=== PATIENT | female | born 1950 | race Caucasian/White ===

== ENCOUNTER 2018-01-24 18:29 | Emergency (ER) | payer MEDICARE ==
[2018-01-24 19:14] VITALS: BP 129/50
--- NOTE | 2018-01-24 19:43 | UC ---
Hand/Wrist HPI - HPI Summary HPI Summary: Pt c/o sudden on set of tenderness, swelling, and redness left anterior lateral wrist. Denies injury or trauma. Has history of gout - History Of Current Complaint Chief Complaint: UCUpperExtremity Stated Complaint: LEFT HAND PAIN Time Seen by Provider: 01/24/18 19:31 Hx Obtained From: Patient ?: No Onset/Duration: Sudden Onset Severity Initially: Moderate Severity Currently: Moderate Pain Intensity: 7 Character Of Pain: Sharp, Dull, Aching Aggravating Factor(s): Movement Alleviating Factor(s): Rest Associated Signs And Symptoms: Positive: Swelling, Redness Related History: Dominant Hand Right - Risk Factors Compartment Syndrome Risk Factors: Pain - Allergies/Home Medications Allergies/Adverse Reactions: Allergies Allergy/AdvReac Type Severity Reaction Status Date / Time No Known Allergies Allergy Verified 01/24/18 19:14 Home Medications: Home Medications Allopurinol TAB* [Zyloprim 100 MG TAB*] 100 mg PO DAILY 01/24/18 [History Confirmed 01/24/18] PMH/Surg Hx/FS Hx/Imm Hx Previously Healthy: Yes Cardiovascular History: Hypertension - Surgical History Surgical History: Yes Surgery Procedure, Year, and Place: gallbladder 2006 [facility] - Family History Known Family History: Positive: Cardiac Disease - Social History Occupation: Retired Lives: With Family Alcohol Use: Rare Alcohol Amount: socially Substance Use Type: None Smoking Status (MU): Never Smoked Tobacco Have You Smoked in the Last Year: No Review of Systems Constitutional: Negative Skin: Other - erythema Eyes: Negative ENT: Negative Respiratory: Negative Cardiovascular: Negative Gastrointestinal: Negative Genitourinary: Negative Motor: Decreased ROM - left wrist Neurovascular: Negative Musculoskeletal: Arthralgia, Decreased ROM - left wrist, Edema, Myalgia Neurological: Negative Psychological: Negative Is Patient Immunocompromised?: No All Other Systems Reviewed And Are Negative: Yes Physical Exam Triage Information Reviewed: Yes Appearance: Obese, Other: - unkempt Vital Signs: Initial Vital Signs Temp 97.6 F 01/24/18 19:07 Pulse 57 01/24/18 19:07 Resp 19 01/24/18 19:07 BP 129/50 01/24/18 19:07 Pulse Ox 100 01/24/18 19:07 Vital Signs Reviewed: Yes Eye Exam: Normal ENT Exam: Normal Neck exam: Normal Respiratory: Positive: No respiratory distress Musculoskeletal Exam: Other Musculoskeletal: Positive: Strength Limited @ - left wrist, ROM Limited @, Edema @ - left wrist Neurological Exam: Normal Psychological Exam: Normal Skin Exam: Other - erythematous [place] area left lateral aspect Hand/Wrist Course/Dx - Differential Dx/Diagnosis Differential Diagnosis/HQI/PQRI: Bursitis, Fracture, Gout Provider Diagnoses: Gout Discharge - Discharge Plan Condition: Stable Disposition: HOME Prescriptions: Colchicine* [Colcrys*] 0.6 mg PO DAILY #2 tab Patient Education Materials: Low Purine Diet (ED), Gout (ED) Referrals: Tanya Teixeira MD [Primary Care Provider] - If Needed
== END 2018-01-24 19:54 | disposition home or self-care (01) ==
LOC: UCCORT 18:29
DX: M10.9 Gout, unspecified (principal); I10 Essential (primary) hypertension
CPT/HCPCS: 99212; G0463